=== PATIENT | female | born 1945 | race Caucasian/White ===

== ENCOUNTER 2018-02-05 07:51 | Emergency (ER) | END 2018-02-05 09:29 | disposition home or self-care (01) ==

== ENCOUNTER 2018-07-03 11:09 | Day surgery (SDC) | payer OTHER ==
[~2018-07-03] VITALS: Ht 154.9 cm; Wt 70.0 kg
[2018-07-03] MEDS ORDERED: AMLO-147 PO (11:55)
[2018-07-03 12:49] VITALS: BP 187/86; PULSE 87; RESP 20
[2018-07-03 12:50] VITALS: Ht 154.9 cm; Wt 70.0 kg
== END 2018-07-03 15:00 | disposition home or self-care (01) ==
LOC: SDS 11:09
PROVIDERS: ATTEND Internal Medicine Hematology & Oncology
DX: C50.912 Malignant neoplasm of unspecified site of left female breast (principal); Z53.8 Procedure and treatment not carried out for other reasons; Z85.41 Personal history of malignant neoplasm of cervix uteri